=== PATIENT | female | born 1990 | race Two or more races ===

== ENCOUNTER 2024-11-20 19:02 | Observation (INO) | payer MEDICAID, SELFPAY ==
[2024-11-20] VITALS (60 sets, daily range): BP systolic 121–175; BP diastolic 76–98; PULSE 85–105; RESP 15–98; TEMP 36.6; O2SAT 92–100; BMI 50.4
[2024-11-20 20:12] LABS: Collection Type, Urine Voided
[2024-11-20 20:15] LABS: Basophils % (Auto) 0 % (0-2.5); Eosinophils # (Auto) 0.1 Thou/mm3 (0.0-0.5); Eosinophils % (Auto) 0 % (0-10); Hemoglobin 10.3 g/dL (12.0-16.0); Immature Granulocytes % (Auto) 1 % (0-0); Immature Granulocytes Auto 0.17 Thou/mm3 (0.00-0.00); Lymphocytes # (Auto) 2.5 Thou/mm3 (1.0-4.8); Lymphocytes % (Auto) 19 % (10-50); Mean Corpuscular HGB Conc 34.3 g/dl (31.0-37.0); Mean Corpuscular Hemoglobin 26.9 pg (25.0-35.0); Mean Corpuscular Volume 78 fL (80-100); Monocytes # (Auto) 0.6 Thou/mm3 (0.0-0.8); Monocytes % (Auto) 4 % (0-12); Neutrophils # (Auto) 10.3 Thou/mm3 (1.8-7.7); Neutrophils % (Auto) 75 % (37-80); Nucleated Red Blood Cell % 0 /100 WBC (0); Platelet Count 289 Thou/mm3 (140-440); Red Blood Count 3.83 Miln/mm3 (4.00-5.20); White Blood Count 13.7 Thou/mm3 (3.6-11.0)
[2024-11-20 20:22] LABS: Bilirubin,Urine Negative (Negative); Blood,Urine Negative (Negative); Clarity,Urine Clear (Clear/Hazy); Color,Urine Colorless (Lt Yel-Yel); Glucose, Urine Negative (Negative); Ketones,Urine Negative (Negative); Leukocyte Esterase,Urine Negative (Negative); Nitrite,Urine Negative (Negative); Protein,Urine Negative (Neg - Trace); RBC,Urine < 1 /hpf (0-3); Specific Gravity,Urine 1.007 (1.001-1.035); Squamous Epithelial Cell,Urine 2 /hpf (0-5); Urobilinogen,Urine Negative mg/dL (0.0-1.0); WBC,Urine 1 /hpf (0-5)
[2024-11-20 20:35] LABS: Fibrinogen 494 mg/dL (175-375); INR 0.9 (0.9-1.3); Partial Thromboplastin Time 27.3 Seconds (22.0-36.0); Prothrombin Time 10.3 Seconds (9.0-12.2)
[2024-11-20 22:31] LABS: Alanine Aminotransferase 8 U/L (10-49); Albumin, Serum 3.8 gm/dL (3.5-5.0); Albumin/Globulin Ratio 1.4 (1.2-2.2); Alkaline Phosphatase 94 U/L (46-116); Anion Gap 11 (7-16); Aspartate Amino Transferase 14 U/L (0-34); BUN/Creatinine Ratio 13 Ratio (12-20); Bilirubin,Total 0.2 mg/dL (0.3-1.2); Blood Urea Nitrogen 8 mg/dL (9-23); Calcium 8.8 mg/dL (8.3-10.6); Carbon Dioxide 21.5 mMol/L (20.0-31.0); Chloride 104 mMol/L (98-107); Creatinine (Component) 0.6 mg/dL (0.6-1.3); Estimated Creatinine Clearance 163.9 mL/min (>60); Globulin 2.8 gm/dL (2.3-3.5); Glucose 91 mg/dL (74-106); Osmolality,Calculated 270 (275-295); Potassium 3.6 mMol/L (3.4-5.1); Sodium 136 mMol/L (136-145); Total Protein 6.6 gm/dL (5.7-8.2); Uric Acid 3.5 mg/dL (3.1-7.8); eGFR > 60 See Note
== END 2024-11-20 22:50 | disposition home or self-care (01) ==
PROVIDERS: Admitting Provider Student in an Organized Health Care Education/Training Program; Visit Provider Student in an Organized Health Care Education/Training Program
DX: O26.892 Other specified pregnancy related conditions, second trimester (principal); Z3A.25 25 weeks gestation of pregnancy; R03.0 Elevated blood-pressure reading, without diagnosis of hypertension
CPT/HCPCS: 36415; 59025; 59899; 80053; 81001; 84550; 85025; 85384; 85610; 85730; G0378

== ENCOUNTER 2024-11-27 15:06 | Observation (INO) | payer MEDICAID, SELFPAY ==
[2024-11-27] VITALS (70 sets, daily range): BP systolic 124–185; BP diastolic 63–107; PULSE 79–109; RESP 20–99; TEMP 35.8; O2SAT 98–100; BMI 50.2
[2024-11-27 16:37] LABS: Basophils % (Auto) 0 % (0-2.5); Eosinophils % (Auto) 0 % (0-10); Hematocrit 30.3 % (36.0-46.0); Hemoglobin 10.3 g/dL (12.0-16.0); Immature Granulocytes % (Auto) 1 % (0-0); Immature Granulocytes Auto 0.15 Thou/mm3 (0.00-0.00); Lymphocytes # (Auto) 2.3 Thou/mm3 (1.0-4.8); Lymphocytes % (Auto) 17 % (10-50); Mean Corpuscular Volume 80 fL (80-100); Monocytes # (Auto) 0.6 Thou/mm3 (0.0-0.8); Monocytes % (Auto) 4 % (0-12); Neutrophils # (Auto) 10.6 Thou/mm3 (1.8-7.7); Neutrophils % (Auto) 77 % (37-80); Nucleated Red Blood Cell % 0 /100 WBC (0); Platelet Count 261 Thou/mm3 (140-440); RDW Standard Deviation 42.5 fL (36.4-46.3); Red Blood Count 3.81 Miln/mm3 (4.00-5.20); White Blood Count 13.7 Thou/mm3 (3.6-11.0)
[2024-11-27 16:47] LABS: Creatinine,Random Urine 148 mg/dL (30-125); Protein Total, Random Urine 25 mg/dL (1-14)
[2024-11-27 17:05] LABS: Collection Type, Urine Clean Catch
[2024-11-27 17:09] LABS: Alanine Aminotransferase < 7 U/L (10-49); Albumin, Serum 3.7 gm/dL (3.5-5.0); Albumin/Globulin Ratio 1.3 (1.2-2.2); Alkaline Phosphatase 97 U/L (46-116); Anion Gap 8 (7-16); Aspartate Amino Transferase 12 U/L (0-34); BUN/Creatinine Ratio 13 Ratio (12-20); Bilirubin,Total 0.3 mg/dL (0.3-1.2); Blood Urea Nitrogen 8 mg/dL (9-23); Calcium 8.6 mg/dL (8.3-10.6); Calcium (Corrected) 8.8 mg/dL (8.5-10.1); Chloride 107 mMol/L (98-107); Creatinine (Component) 0.6 mg/dL (0.6-1.3); Estimated Creatinine Clearance 163.5 mL/min (>60); Globulin 2.9 gm/dL (2.3-3.5); Glucose 85 mg/dL (74-106); LDH (Lactate Dehydrogenase) 140 U/L (120-246); Osmolality,Calculated 272 (275-295); Potassium 3.9 mMol/L (3.4-5.1); Sodium 138 mMol/L (136-145); Total Protein 6.6 gm/dL (5.7-8.2); Uric Acid 3.7 mg/dL (3.1-7.8); eGFR > 60 See Note
[2024-11-27 17:14] LABS: Bilirubin,Urine Negative (Negative); Blood,Urine Negative (Negative); Clarity,Urine Clear (Clear/Hazy); Color,Urine Yellow (Lt Yel-Yel); Culture Indicated,Urine Not Indicated; Glucose, Urine Negative (Negative); Ketones,Urine Negative (Negative); Leukocyte Esterase,Urine Positive (Negative); Nitrite,Urine Negative (Negative); PH,Urine 5.5 (5.0-7.0); Protein,Urine Trace (Neg - Trace); RBC,Urine 3 /hpf (0-3); Specific Gravity,Urine 1.029 (1.001-1.035); Squamous Epithelial Cell,Urine 7 /hpf (0-5); Urobilinogen,Urine Negative mg/dL (0.0-1.0); WBC,Urine 6 /hpf (0-5)
[2024-11-27] MEDS: LABETALOL 100 MG TABLET 200 MG PO (17:15)
[2024-11-27] MEDS: ACETAMINOPHEN 500 MG TABLET 1000 MG PO (17:16)
[2024-11-27 17:32] LABS: Fibrinogen 494 mg/dL (175-375); Partial Thromboplastin Time 30.2 Seconds (22.0-36.0); Prothrombin Time 10.6 Seconds (9.0-12.2)
[2024-11-27] MEDS: NIFEdipine XL 30 MG TABCR PO (18:26)
== END 2024-11-27 20:06 | disposition home or self-care (01) ==
PROVIDERS: Admitting Provider Specialist; Visit Provider Specialist
DX: Z34.02 Encounter for supervision of normal first pregnancy, second trimester (principal); Z3A.26 26 weeks gestation of pregnancy
CPT/HCPCS: 36415; 59025; 59899; 80053; 81001; 82570; 83615; 84156; 84550; 85025; 85384; 85610; 85730; A9270

== ENCOUNTER 2024-12-17 17:10 | Outpatient (CLI) | payer MEDICAID, SELFPAY ==
[2024-12-17] VITALS (9 sets, daily range): BP systolic 0–137; BP diastolic 0–91; PULSE 82–105; RESP 18–99; TEMP 36.8; BMI 50.2
[2024-12-17 17:56] LABS: Collection Type, Urine Clean Catch
[2024-12-17 18:16] LABS: Basophils % (Auto) 0 % (0-2.5); Eosinophils # (Auto) 0.1 Thou/mm3 (0.0-0.5); Eosinophils % (Auto) 1 % (0-10); Hematocrit 31.4 % (36.0-46.0); Hemoglobin 10.8 g/dL (12.0-16.0); Immature Granulocytes % (Auto) 1 % (0-0); Immature Granulocytes Auto 0.14 Thou/mm3 (0.00-0.00); Lymphocytes # (Auto) 1.8 Thou/mm3 (1.0-4.8); Lymphocytes % (Auto) 14 % (10-50); Mean Corpuscular HGB Conc 34.4 g/dl (31.0-37.0); Mean Corpuscular Hemoglobin 26.9 pg (25.0-35.0); Mean Corpuscular Volume 78 fL (80-100); Monocytes # (Auto) 0.4 Thou/mm3 (0.0-0.8); Monocytes % (Auto) 3 % (0-12); Neutrophils # (Auto) 10.8 Thou/mm3 (1.8-7.7); Neutrophils % (Auto) 81 % (37-80); Nucleated Red Blood Cell % 0 /100 WBC (0); Platelet Count 285 Thou/mm3 (140-440); RDW Standard Deviation 41.7 fL (36.4-46.3); Red Blood Count 4.02 Miln/mm3 (4.00-5.20); White Blood Count 13.3 Thou/mm3 (3.6-11.0)
[2024-12-17 18:20] LABS: Albumin, Serum 3.9 gm/dL (3.5-5.0); Albumin/Globulin Ratio 1.2 (1.2-2.2); Alkaline Phosphatase 115 U/L (46-116); Anion Gap 8 (7-16); Aspartate Amino Transferase 13 U/L (0-34); BUN/Creatinine Ratio 13 Ratio (12-20); Bilirubin,Total 0.3 mg/dL (0.3-1.2); Blood Urea Nitrogen 9 mg/dL (9-23); Calcium (Corrected) 9.1 mg/dL (8.5-10.1); Carbon Dioxide 20.8 mMol/L (20.0-31.0); Chloride 108 mMol/L (98-107); Creatinine (Component) 0.7 mg/dL (0.6-1.3); Estimated Creatinine Clearance 140.1 mL/min (>60); Globulin 3.2 gm/dL (2.3-3.5); Glucose 132 mg/dL (74-106); LDH (Lactate Dehydrogenase) 136 U/L (120-246); Osmolality,Calculated 274 (275-295); Sodium 137 mMol/L (136-145); Total Protein 7.1 gm/dL (5.7-8.2); Uric Acid 3.6 mg/dL (3.1-7.8); eGFR > 60 See Note
[2024-12-17 18:29] LABS: Alanine Aminotransferase 8 U/L (10-49)
[2024-12-17 19:14] LABS: Bacteria,Urine Rare; Bilirubin,Urine Negative (Negative); Blood,Urine Negative (Negative); Clarity,Urine Clear (Clear/Hazy); Color,Urine Yellow (Lt Yel-Yel); Glucose, Urine Negative (Negative); Ketones,Urine Negative (Negative); Leukocyte Esterase,Urine Positive (Negative); Nitrite,Urine Negative (Negative); Protein,Urine Trace (Neg - Trace); RBC,Urine 6 /hpf (0-3); Specific Gravity,Urine 1.029 (1.001-1.035); Squamous Epithelial Cell,Urine 12 /hpf (0-5); Urobilinogen,Urine Negative mg/dL (0.0-1.0); WBC,Urine 7 /hpf (0-5)
[2024-12-17 20:02] LABS: Partial Thromboplastin Time 29.3 Seconds (22.0-36.0); Prothrombin Time 10.5 Seconds (9.0-12.2)
[2024-12-17 20:06] LABS: Fibrinogen 617 mg/dL (175-375)
== END 2024-12-17 20:12 | disposition home or self-care (01) ==
LOC: S4S1 17:11 → S4SX 18:41
PROVIDERS: Referring Provider Obstetrics & Gynecology; Visit Provider Obstetrics & Gynecology
DX: Z34.03 Encounter for supervision of normal first pregnancy, third trimester (principal); Z36.89 Encounter for other specified antenatal screening; Z3A.30 30 weeks gestation of pregnancy
CPT/HCPCS: 36415; 80053; 81001; 83615; 84550; 85025; 85384; 85610; 85730

== ENCOUNTER 2024-12-24 11:04 | Outpatient (CLI) | payer MEDICAID, SELFPAY ==
[2024-12-24 11:12] VITALS: BP 143/85; PULSE 88
[2024-12-24 11:19] VITALS: RESP 18; TEMP 36.8; BMI 51.2
--- NOTE | 2024-12-24 11:29 | PC.NURSE ---
11:[address] STODDARD'S OFFICE WITH C/O DFM FOR [address] STODDARD ORDERED AN NST OVER THE TELEPHONE WHEN PT ARRIVES
[2024-12-24 11:32] VITALS: BP 143/80; PULSE 80
--- NOTE | 2024-12-24 11:35 | PC.NURSE ---
11:32 DR PEOPLES CALLED AND GIVEN SBAR WITH 1ST AND 2ND BP READING. DR WILL COME AND ASSESS P[T TO SEE IF HE WOULD LIKE TO ORDER ANYTHING ELSE BESIDES NST BY DR STODDARD
--- NOTE | 2024-12-24 11:37 | PC.NURSE ---
DR PEOPLES AT BEDSIDE ASSESSING PT
[2024-12-24 11:47] VITALS: BP 151/78; PULSE 83
--- NOTE | 2024-12-24 11:47 | PD.LDTRIAGE2 ---
Documentation for date of: 12/24/24 Hx History Provider: RICHI Attending Provider: RICHELLE : 1 Para: 0 Term: 0 : 0 Number of Living Children: 0 Abortions: Spontaneous & Elective: 0 # of Vaginal Deliveries:: 0 Hx Section: No Hx Vaginal Delivery Post : No Gestation Info Final VIVIAN: 02/24/25 Complaint Complaint Complaint: NST SENT FROM DR STODDARD'S OFFICE Medical History Medical History Medical History: G-1 AT 31 WEEKS WITH TRANSIENT DECREASE MOVEMETS WHILE AT HOME. SINCE ARRIVAL ON MONITOR PATIENT REPORTS MOVEMENTS X 2 OVER 15 MINUTES. CHRONIC HYPERTENSIVE X 3 YEARS CONTROLLED BY LABETALOL AND PROCARDIA BID FHR SHOWS REACTIVE ST . 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 Assessment Systems Assessment Systems With in Normal Limits: Yes Heart Monitoring Heart Rate Assessment FHR Baseline: 150 Variability: Moderate Movement Reported: Yes NST Reactive: Yes WNL for GA: Yes Amniotic Membranes Amniotic Membranes Amniotic Membrane Status: Intact Amniotic Membrane Fluid Amount: None Ultrasound results US Report Abruption: No Previa: No Social risk screen Social Risk Screening Observed or verbalized signs of abuse or neglect: No Radio Communications Superintendent Referral: No RN Notes Notes LD Triage Comment: PT ARRIVES TO OB TRIAGE WITH C/O DFM FOR 3 DAYS AND SENT OVER FROM DR STODDARD'S OFFICE FOR NST
[2024-12-24 12:03] VITALS: BP 143/83; PULSE 88; RESP 18; TEMP 36.8
== END 2024-12-24 12:00 | disposition home or self-care (01) ==
LOC: S4S1 11:06 → S4SX 11:08
PROVIDERS: Referring Provider Obstetrics & Gynecology; Visit Provider Obstetrics & Gynecology
DX: O36.8130 Decreased fetal movements, third trimester, not applicable or unspecified (principal); O10.913 Unspecified pre-existing hypertension complicating pregnancy, third trimester; Z3A.31 31 weeks gestation of pregnancy
CPT/HCPCS: 59025

== ENCOUNTER 2025-01-16 14:31 | Outpatient (RCR) | payer MEDICAID, SELFPAY ==
--- NOTE | 2024-12-30 10:48 | XR_ITS ---
Examination: Biophysical profile, ultrasound Date and time of exam: December 30, 2024 1119 hours INDICATIONS: -induced hypertension diagnosis Technique: Multiple transabdominal sonographic images of the pelvis abdomen obtained. Attention is directed to the breathing movement, gross body movement, amniotic fluid volume and tone. Findings: Amniotic fluid index 11.5 cm Total biophysical profile is 8 of 8. breathing movement is 2. Gross body movement is 2. tone is 2. Qualitative amniotic fluid volume is 2 Impression: Biophysical profile is 8 of 8.
[2024-12-30 11:46] VITALS: BP 123/70; PULSE 85; RESP 16; TEMP 36.7
--- NOTE | 2025-01-02 10:13 | XR_ITS ---
Examination: Biophysical profile, ultrasound Date and time of exam: January 02, 2025 1018 hours INDICATIONS: Diagnosis gestational hypertension Technique: Multiple transabdominal sonographic images of the pelvis abdomen obtained. Attention is directed to the breathing movement, gross body movement, amniotic fluid volume and tone. Findings: Amniotic fluid index 6.8 cm Total biophysical profile is 8 of 8. breathing movement is 2. Gross body movement is 2. tone is 2. Qualitative amniotic fluid volume is 2 Impression: Biophysical profile is 8 of 8.
[2025-01-02 10:40] VITALS: BP 121/66; PULSE 82; RESP 16; TEMP 36.8
--- NOTE | 2025-01-06 10:10 | XR_ITS ---
Examination: Biophysical profile, ultrasound Date and time of exam: January 06, 2025 1037 hours INDICATIONS: Pelvic cramping beginning 4 days ago, diagnosis gestational hypertension Technique: Multiple transabdominal sonographic images of the pelvis abdomen obtained. Attention is directed to the breathing movement, gross body movement, amniotic fluid volume and tone. Findings: Amniotic fluid index 7.1 cm Total biophysical profile is 8 of 8. breathing movement is 2. Gross body movement is 2. tone is 2. Qualitative amniotic fluid volume is 2 Impression: Biophysical profile is 8 of 8.
[2025-01-06 10:54] VITALS: BP 148/83; PULSE 91; RESP 16; TEMP 36.7
--- NOTE | 2025-01-09 10:18 | XR_ITS ---
Examination: Biophysical profile, ultrasound Date and time of exam: January 09, 2025 1224 hours INDICATIONS: -induced hypertension diagnosis Technique: Multiple transabdominal sonographic images of the pelvis abdomen obtained. Attention is directed to the breathing movement, gross body movement, amniotic fluid volume and tone. Findings: Amniotic fluid index 7.0 cm Total biophysical profile is 8 of 8. breathing movement is 2. Gross body movement is 2. tone is 2. Qualitative amniotic fluid volume is 2 Impression: Biophysical profile is 8 of 8.
[2025-01-09 10:50] VITALS: BP 132/70; PULSE 100; RESP 16; TEMP 36.9
--- NOTE | 2025-01-13 10:07 | XR_ITS ---
Examination: Biophysical profile, ultrasound Date and time of exam: January 13, 2025 1011 hours INDICATIONS: -induced hypertension diagnosis Technique: Multiple transabdominal sonographic images of the pelvis abdomen obtained. Attention is directed to the breathing movement, gross body movement, amniotic fluid volume and tone. Findings: Amniotic fluid index 8.0 cm Total biophysical profile is 8 of 8. breathing movement is 2. Gross body movement is 2. tone is 2. Qualitative amniotic fluid volume is 2 Impression: Biophysical profile is 8 of 8.
[2025-01-13 11:24] VITALS: BP 117/68; PULSE 83; RESP 16; TEMP 36.7
--- NOTE | 2025-01-16 14:40 | XR_ITS ---
Examination: Biophysical profile, ultrasound Date and time of exam: January 16, 2025 1450 hours INDICATIONS: Diagnosis gestational hypertension Technique: Multiple transabdominal sonographic images of the pelvis abdomen obtained. Attention is directed to the breathing movement, gross body movement, amniotic fluid volume and tone. Findings: Amniotic fluid index 8.6 cm Total biophysical profile is 8 of 8. breathing movement is 2. Gross body movement is 2. tone is 2. Qualitative amniotic fluid volume is 2 Impression: Biophysical profile is 8 of 8.
[2025-01-16 15:19] VITALS: TEMP 36.8
--- NOTE | 2025-01-16 16:25 | PD.LDTRIAGE2 ---
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
--- NOTE | 2025-01-16 16:28 | PD.LDTRIAGE2 ---
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
[2025-01-16 16:44] LABS: Creatinine,Urine 182 mg/dL (30-125); Protein Total, Random Urine 23 mg/dL (1-14)
== END 2025-01-16 23:59 | disposition home or self-care (01) ==
LOC: S4S1 14:31
PROVIDERS: Obstetrics & Gynecology; Referring Provider Nurse Practitioner Women's Health; Visit Provider Nurse Practitioner Women's Health
DX: O13.3 Gestational [pregnancy-induced] hypertension without significant proteinuria, third trimester (principal); O99.213 Obesity complicating pregnancy, third trimester; E66.9 Obesity, unspecified; Z3A.34 34 weeks gestation of pregnancy
CPT/HCPCS: 59025; 76819; 82570; 82575; 84156

== ENCOUNTER 2025-01-20 14:35 | Inpatient (IN) | payer MEDICAID, SELFPAY ==
[2025-01-20] VITALS (203 sets, daily range): BP systolic 130–197; BP diastolic 67–101; PULSE 75–120; RESP 18–98; TEMP 36.8–36.9; O2SAT 92–99; BMI 52.3
--- NOTE | 2025-01-20 12:46 | XR_ITS ---
Examination: Complete OB ultrasound greater than 14 weeks Date and time of exam: January 21, 2020 01/24/2007 hours INDICATIONS: Gestational hypertension Findings: Viable intrauterine single fetus with single amniotic sac presentation cephalic Cardiac motion 141 BPM Placenta maternal right Grade 2 Umbilical cord insertion 3 vessel seen Amniotic fluid index 7.3 cm spine maternal left Cervix 3.0 cm Ovaries obscured by bowel gas. Composite estimated gestational age based on BPD, head circumference, abdominal circumference, femur length is 34 weeks 3 days Estimated weight 2341.9 g. Survey of intracranial anatomy, spinal anatomy, abdominal anatomy, four-chamber heart performed with no abnormalities identified. Impression: Viable intrauterine gestation cephalic presentation.
[2025-01-20 13:21] LABS: Collection Type, Urine Clean Catch
[2025-01-20 13:27] LABS: Basophils % (Auto) 0 % (0-2.5); Eosinophils # (Auto) 0.1 Thou/mm3 (0.0-0.5); Eosinophils % (Auto) 0 % (0-10); Hematocrit 30.5 % (36.0-46.0); Hemoglobin 10.3 g/dL (12.0-16.0); Immature Granulocytes % (Auto) 1 % (0-0); Lymphocytes # (Auto) 1.8 Thou/mm3 (1.0-4.8); Lymphocytes % (Auto) 14 % (10-50); Mean Corpuscular HGB Conc 33.8 g/dl (31.0-37.0); Mean Corpuscular Hemoglobin 27.3 pg (25.0-35.0); Mean Corpuscular Volume 81 fL (80-100); Monocytes # (Auto) 0.4 Thou/mm3 (0.0-0.8); Monocytes % (Auto) 3 % (0-12); Neutrophils # (Auto) 10.8 Thou/mm3 (1.8-7.7); Neutrophils % (Auto) 82 % (37-80); Nucleated Red Blood Cell % 0 /100 WBC (0); Platelet Count 285 Thou/mm3 (140-440); RDW Standard Deviation 43.8 fL (36.4-46.3); Red Blood Count 3.77 Miln/mm3 (4.00-5.20); White Blood Count 13.3 Thou/mm3 (3.6-11.0)
[2025-01-20 13:41] LABS: Bilirubin,Urine Negative (Negative); Blood,Urine Negative (Negative); Color,Urine Yellow (Lt Yel-Yel); Glucose, Urine Negative (Negative); Ketones,Urine Trace (Negative); Leukocyte Esterase,Urine Positive (Negative); Nitrite,Urine Negative (Negative); PH,Urine 5.5 (5.0-7.0); Protein,Urine 1+ (Neg - Trace); RBC,Urine 1 /hpf (0-3); Specific Gravity,Urine 1.035 (1.001-1.035); Squamous Epithelial Cell,Urine 12 /hpf (0-5); Transitional Epi Cells,Urine 1 /hpf (0-5); Urobilinogen,Urine Negative mg/dL (0.0-1.0); WBC,Urine 6 /hpf (0-5)
[2025-01-20 13:42] LABS: Clarity,Urine Hazy (Clear/Hazy)
[2025-01-20 13:49] LABS: Fibrinogen 503 mg/dL (175-375); INR 0.9 (0.9-1.3); Partial Thromboplastin Time 28.4 Seconds (22.0-36.0); Prothrombin Time 10.4 Seconds (9.0-12.2)
[2025-01-20 13:58] LABS: Protein Total, Random Urine 44 mg/dL (1-14)
[2025-01-20 14:03] LABS: Creatinine,Random Urine 261 mg/dL (30-125)
[2025-01-20 14:04] LABS: Alanine Aminotransferase < 7 U/L (10-49); Albumin, Serum 3.8 gm/dL (3.5-5.0); Albumin/Globulin Ratio 1.5 (1.2-2.2); Alkaline Phosphatase 115 U/L (46-116); Anion Gap 10 (7-16); Aspartate Amino Transferase 12 U/L (0-34); BUN/Creatinine Ratio 11 Ratio (12-20); Bilirubin,Total 0.3 mg/dL (0.3-1.2); Blood Urea Nitrogen 10 mg/dL (9-23); Calcium 8.2 mg/dL (8.3-10.6); Calcium (Corrected) 8.4 mg/dL (8.5-10.1); Carbon Dioxide 20.1 mMol/L (20.0-31.0); Chloride 108 mMol/L (98-107); Creatinine (Component) 0.9 mg/dL (0.6-1.3); Estimated Creatinine Clearance 111.8 mL/min (>60); Globulin 2.5 gm/dL (2.3-3.5); Glucose 122 mg/dL (74-106); LDH (Lactate Dehydrogenase) 138 U/L (120-246); Osmolality,Calculated 275 (275-295); Potassium 4.4 mMol/L (3.4-5.1); Sodium 138 mMol/L (136-145); Total Protein 6.3 gm/dL (5.7-8.2); Uric Acid 5.1 mg/dL (3.1-7.8); eGFR > 60 See Note
[2025-01-20] MEDS: NIFEdipine 10 MG CAPSULE PO (14:42)
[2025-01-20] MEDS: BETAMET ACET/BETAMET NA PH (Celestone) 6 MG/ML VIAL 12 MG IM (15:06)
--- NOTE | 2025-01-20 15:06 | ESHP_ITS ---
Documentation for date of: 01/20/25 OB Labor/Induct. HPI History of Present Illness Chief complaint: Preeclampsia with severe features : 1 Para: 0 Term pregnancies: 0 pregnancies: 0 Living children: 0 History of Abortions: Spontaneous and Elective: 0 History of Vaginal deliveries: 0 History of sections: No History of : No Date of last menstrual period: 05/14/24 VIVIAN: 02/24/25 Gestational Age (weeks): 35 Gestational Age (days): 0 Gestational age based on last menstrual period: 35 Indication for induction: medical complication History of present illness: Patient is a 34-year-old 1 para 0 at 35 weeks and 0 days with estimated due date of 02/28/2025 who presented to labor and delivery triage with complaints of severely elevated blood pressures at home as well as headache with floaters in her visual field. She has a history of chronic hypertension and was on labetalol 200 twice daily as well as Procardia 60 XL at home On presentation she had her initial blood pressure was 190/90 and there were multiple severe range blood pressures subsequently. Patient continues to have headache and visual symptoms. She denies any contractions or leakage of fluid or vaginal bleeding and reports adequate movements. Patient receives care at [facility] and limited records are available in the chart History of Present Adequate Care: Yes Review of Systems Review of Systems Systems Reviewed: All systems reviewed, normal except as documented Past Medical History Surgical History SURGICAL: Negative Section Meds Home Medications and Allergies Home Medications ?Medication ?Instructions ?Recorded ?Confirmed ?Type aspirin 81 mg tablet,delayed 81 mg PO QDAY 11/20/24 History release (Adult Aspirin Regimen) nifedipine 60 mg tablet,extended 60 mg PO QDAY 5 01/20/25 History release vit no.95-ferrous 1 tab PO QDAY 11/20/2412/27 History fumarate 28 mg-folic acid 800 mcg tablet () Allergies Allergy/AdvReac Type Severity Reaction Status Date / Time No Known Allergies Allergy Verified 11/27/24 15:42 OB Exam Physical Exam Vital signs: Temp Pulse Resp BP Pulse Ox 98.3 F 75 20 148/89 H 97 01/20/25 12:36 01/20/25 14:42 01/20/25 12:36 01/20/25 14:42 01/20/25 15:06 Constitutional Constitutional: no acute distress Routine HEENT Exam Head: Present normocephalic and atraumatic Eye: Present EOMI and PERRL ENT: Present mucous membranes moist Routine Neck Exam Neck: Present supple and trachea midline Routine Cardiovascular Exam Cardiovascular: Present RRR Routine Abdominal Exam Abdominal: Present soft and normoactive bowel sounds Detailed Labor and Delivery Exam Dilation (cm): 0 Effacement (%): 0 Cervix position: mid station: -3 Consistency: firm Presentation: Vertex Membranes: intact Baseline heart rate: 130 monitor accelerations: 15x15 monitor decelerations: None intermediate project manager variability: Average (6-10) Routine Extremities Exam Extremities: Present full ROM Routine Skin Exam Skin: Present intact, dry and warm Routine Neurological Exam Neurological: Present alert, oriented X3 and CN II-XII intact Routine Psychiatric Exam Psychiatric: Present normal affect and normal thought process OB Results Labs 01/20/25 13:08 01/20/25 13:08 Labs: Short CBC 01/20/25 Range/Units 13:08 WBC 13.3 H (3.6-11.0) Thou/mm3 Hgb 10.3 L (12.0-16.0) g/dL Hct 30.5 L (36.0-46.0) % Plt Count 285 (140-440) Thou/mm3 BMP 01/20/25 13:08 Sodium 138 Potassium 4.4 Chloride 108 H Carbon Dioxide 20.1 BUN 10 Creatinine 0.9 Glucose 122 H Calcium 8.2 L Liver Function 01/20/25 Range/Units 13:08 Total Bilirubin 0.3 (0.3-1.2) mg/dL AST 12 (0-34) U/L ALT < 7 L (10-49) U/L Alkaline Phosphatase 115 (46-116) U/L Albumin 3.8 (3.5-5.0) gm/dL Urine 01/20/25 Range/Units 13:13 Urine Color Yellow (Lt Yel-Yel) Urine Clarity Hazy (Clear/Hazy) Urine pH 5.5 (5.0-7.0) Ur Specific Mchenry 1.035 (1.001-1.035) Urine Protein 1+ A (Neg - Trace) Urine Glucose (UA) Negative (Negative) Impressions Impression: 37-year-old at 35w0d gestation admitted for induction of labor due to severe preeclampsia. Diagnosis based on elevated blood pressure readings >=60/110 mmHg, presence of proteinuria, and/or associated symptoms (e.g., headache, visual disturbances, epigastric pain). No evidence of eclampsia or HELLP at this time. Delivery is indicated given gestational age >=4 weeks and severity of disease. OB Assessment & Plan Assessment and Plan (1) Chronic hypertension during : Status: Acute (2) Hypertension, uncontrolled: Status: Acute (3) Severe pre-eclampsia: Status: Acute Assessment and plan: * Admit to Labor & Delivery for induction of labor due to severe preeclampsia * Continuous monitoring and maternal vital signs * Initiate cervical ripening and/or oxytocin per institutional protocol based on Clifford score * Place Godinez catheter if indicated for strict intake/output * Magnesium sulfate for seizure prophylaxis: * 6g IV loading dose over 20 minutes * Then 2g/hr IV continuous infusion * Monitor reflexes, urine output, respiratory status * Labetalol 300 mg PO TID for blood pressure control * Nifedipine ER 60 mg PO daily * Acetaminophen PRN for headache Labs CBC with platelets, CMP (monitor creatinine, AST/ALT), LDH, UA with protein/creatinine ratio, Type and screen, Magnesium level q6h once on infusion Monitoring: * BP checks q15 minutes x1 hour, then q30?60 min until stable * DTRs and respiratory status q2 hours * Hourly urine output * Monitor for signs of magnesium toxicity or progression to HELLP/eclampsia Monitoring: * Continuous external monitoring (Category I expected) * BPP if NST non-reassuring or induction prolonged Delivery Plan: * Proceed with induction, anticipate vaginal delivery? * Epidural anesthesia encouraged for BP control and in case urgent needed * only for standard obstetric indications * Continue magnesium sulfate for 24 hours * Monitor BP closely * Consider starting antihypertensive therapy based on trends * Inspector And Mender on preeclampsia recurrence risk and follow-up Reviewed all precautions and delivery plan with the patient and she verbalized understanding (3) Severe pre-eclampsia Qualifiers: Trimester: third trimester Qualified Code(s): O14.13 - Severe pre-eclampsia, third trimester
[2025-01-20] MEDS: Magnesium Sulfate 2 GM Ivpb 2 GM/50 ML BAG IV (15:11)
[2025-01-20] MEDS: Magnesium Sulfate 4 GM Ivpb 4 GM/50 ML BAG IV (15:11)
[2025-01-20] MEDS: RINGERS LACTATED 1000 ML 1,000 ML 75 ML IV (15:11)
[2025-01-20 16:01] LABS: Amphetamine/Metham Scrn,Ur OB Negative (Negative); Benzoylecgonine Screen, Ur OB Negative (Negative); Opiate Screen,Urine OB Negative (Negative); THC Screen,Urine OB Negative (Negative)
[2025-01-20] MEDS: hydrALAZINE INJ 20 MG/ML VIAL 10 MG IVP (16:25)
[2025-01-20] MEDS: MAGNESIUM SULF 20 GM IVPB 20 GM/500 ML BAG IV (16:29)
[2025-01-20] MEDS: DINOPROSTONE 10 MG VAG.SUPP VAGINAL (16:45)
[2025-01-20] MEDS: LABETALOL 100 MG TABLET 300 MG PO (18:29)
[2025-01-20 18:35] LABS: Basophils % (Auto) 0 % (0-2.5); Eosinophils % (Auto) 0 % (0-10); Hematocrit 32.5 % (36.0-46.0); Hemoglobin 10.9 g/dL (12.0-16.0); Immature Granulocytes % (Auto) 1 % (0-0); Immature Granulocytes Auto 0.17 Thou/mm3 (0.00-0.00); Lymphocytes # (Auto) 1.3 Thou/mm3 (1.0-4.8); Lymphocytes % (Auto) 8 % (10-50); Mean Corpuscular HGB Conc 33.5 g/dl (31.0-37.0); Mean Corpuscular Hemoglobin 26.7 pg (25.0-35.0); Mean Corpuscular Volume 80 fL (80-100); Monocytes # (Auto) 0.2 Thou/mm3 (0.0-0.8); Monocytes % (Auto) 1 % (0-12); Neutrophils # (Auto) 15.7 Thou/mm3 (1.8-7.7); Neutrophils % (Auto) 90 % (37-80); Nucleated Red Blood Cell % 0 /100 WBC (0); Platelet Count 306 Thou/mm3 (140-440); Red Blood Count 4.08 Miln/mm3 (4.00-5.20); White Blood Count 17.4 Thou/mm3 (3.6-11.0)
[2025-01-20 19:09] LABS: Albumin/Globulin Ratio 1.4 (1.2-2.2); Alkaline Phosphatase 127 U/L (46-116); Anion Gap 13 (7-16); Aspartate Amino Transferase 13 U/L (0-34); BUN/Creatinine Ratio 13 Ratio (12-20); Bilirubin,Total 0.3 mg/dL (0.3-1.2); Blood Urea Nitrogen 10 mg/dL (9-23); Carbon Dioxide 19.5 mMol/L (20.0-31.0); Chloride 105 mMol/L (98-107); Creatinine (Component) 0.8 mg/dL (0.6-1.3); Estimated Creatinine Clearance 125.8 mL/min (>60); Globulin 2.9 gm/dL (2.3-3.5); Glucose 115 mg/dL (74-106); LDH (Lactate Dehydrogenase) 148 U/L (120-246); Osmolality,Calculated 273 (275-295); Potassium 4.5 mMol/L (3.4-5.1); Sodium 137 mMol/L (136-145); Total Protein 6.9 gm/dL (5.7-8.2); Uric Acid 5.2 mg/dL (3.1-7.8); eGFR > 60 See Note
[2025-01-20 19:21] LABS: Alanine Aminotransferase < 7 U/L (10-49); Magnesium 4.5 mg/dL (1.6-2.6)
[2025-01-20] MEDS: NIFEdipine XL 30 MG TABCR PO (20:58)
[2025-01-21] VITALS (415 sets, daily range): BP systolic 80–234; BP diastolic 45–121; PULSE 74–102; RESP 16–18; TEMP 36.5–36.8; O2SAT 80–100
[2025-01-21 00:09] LABS: Syphilis Nonreactive (Nonreactive)
[2025-01-21] MEDS: MAGNESIUM SULF 20 GM IVPB 20 GM/500 ML BAG IV ×3 (00:13→22:47)
[2025-01-21] MEDS: ACETAMINOPHEN IVPB 1,000 MG/100 ML VIAL 250 MG IV (00:32)
[2025-01-21 00:40] LABS: Basophils % (Auto) 0 % (0-2.5); Eosinophils % (Auto) 0 % (0-10); Hematocrit 32.4 % (36.0-46.0); Hemoglobin 10.9 g/dL (12.0-16.0); Immature Granulocytes % (Auto) 1 % (0-0); Immature Granulocytes Auto 0.16 Thou/mm3 (0.00-0.00); Lymphocytes # (Auto) 1.3 Thou/mm3 (1.0-4.8); Lymphocytes % (Auto) 7 % (10-50); Mean Corpuscular HGB Conc 33.6 g/dl (31.0-37.0); Mean Corpuscular Hemoglobin 26.8 pg (25.0-35.0); Mean Corpuscular Volume 80 fL (80-100); Monocytes # (Auto) 0.1 Thou/mm3 (0.0-0.8); Monocytes % (Auto) 1 % (0-12); Neutrophils # (Auto) 17.1 Thou/mm3 (1.8-7.7); Neutrophils % (Auto) 91 % (37-80); Nucleated Red Blood Cell % 0 /100 WBC (0); Platelet Count 302 Thou/mm3 (140-440); RDW Standard Deviation 44.9 fL (36.4-46.3); Red Blood Count 4.06 Miln/mm3 (4.00-5.20); White Blood Count 18.7 Thou/mm3 (3.6-11.0)
[2025-01-21 01:14] LABS: Alanine Aminotransferase 8 U/L (10-49); Albumin, Serum 4.2 gm/dL (3.5-5.0); Albumin/Globulin Ratio 1.6 (1.2-2.2); Alkaline Phosphatase 123 U/L (46-116); Anion Gap 11 (7-16); Aspartate Amino Transferase 14 U/L (0-34); BUN/Creatinine Ratio 14 Ratio (12-20); Bilirubin,Total 0.3 mg/dL (0.3-1.2); Blood Urea Nitrogen 10 mg/dL (9-23); Calcium 7.6 mg/dL (8.3-10.6); Calcium (Corrected) 7.6 mg/dL (8.5-10.1); Carbon Dioxide 17.8 mMol/L (20.0-31.0); Chloride 105 mMol/L (98-107); Creatinine (Component) 0.7 mg/dL (0.6-1.3); Estimated Creatinine Clearance 143.8 mL/min (>60); Globulin 2.7 gm/dL (2.3-3.5); Glucose 153 mg/dL (74-106); LDH (Lactate Dehydrogenase) 137 U/L (120-246); Osmolality,Calculated 270 (275-295); Potassium 4.2 mMol/L (3.4-5.1); Sodium 134 mMol/L (136-145); Total Protein 6.9 gm/dL (5.7-8.2); Uric Acid 5.3 mg/dL (3.1-7.8); eGFR > 60 See Note
[2025-01-21 01:19] LABS: Magnesium 5.3 mg/dL (1.6-2.6)
[2025-01-21] MEDS: RINGERS LACTATED 1000 ML 1,000 ML 100 ML IV (02:02)
[2025-01-21] MEDS: LABETALOL 100 MG TABLET 300 MG PO ×3 (02:23→18:45)
[2025-01-21 07:34] LABS: Basophils % (Auto) 0 % (0-2.5); Eosinophils % (Auto) 0 % (0-10); Hematocrit 30.8 % (36.0-46.0); Hemoglobin 10.4 g/dL (12.0-16.0); Immature Granulocytes % (Auto) 1 % (0-0); Immature Granulocytes Auto 0.18 Thou/mm3 (0.00-0.00); Lymphocytes # (Auto) 1.6 Thou/mm3 (1.0-4.8); Lymphocytes % (Auto) 8 % (10-50); Mean Corpuscular HGB Conc 33.8 g/dl (31.0-37.0); Mean Corpuscular Volume 80 fL (80-100); Monocytes # (Auto) 0.4 Thou/mm3 (0.0-0.8); Monocytes % (Auto) 2 % (0-12); Neutrophils # (Auto) 18.6 Thou/mm3 (1.8-7.7); Neutrophils % (Auto) 90 % (37-80); Nucleated Red Blood Cell % 0 /100 WBC (0); Platelet Count 286 Thou/mm3 (140-440); RDW Standard Deviation 44.9 fL (36.4-46.3); Red Blood Count 3.85 Miln/mm3 (4.00-5.20); White Blood Count 20.7 Thou/mm3 (3.6-11.0)
[2025-01-21] MEDS: MISOPROSTOL 50 mCg TABLET PO ×2 (07:40→12:20)
[2025-01-21 08:15] LABS: Alanine Aminotransferase 8 U/L (10-49); Albumin/Globulin Ratio 1.4 (1.2-2.2); Alkaline Phosphatase 123 U/L (46-116); Anion Gap 13 (7-16); Aspartate Amino Transferase 15 U/L (0-34); BUN/Creatinine Ratio 14 Ratio (12-20); Bilirubin,Total 0.3 mg/dL (0.3-1.2); Blood Urea Nitrogen 10 mg/dL (9-23); Calcium 7.4 mg/dL (8.3-10.6); Calcium (Corrected) 7.4 mg/dL (8.5-10.1); Chloride 103 mMol/L (98-107); Creatinine (Component) 0.7 mg/dL (0.6-1.3); Estimated Creatinine Clearance 143.8 mL/min (>60); Globulin 2.8 gm/dL (2.3-3.5); Glucose 132 mg/dL (74-106); LDH (Lactate Dehydrogenase) 149 U/L (120-246); Osmolality,Calculated 269 (275-295); Potassium 4.4 mMol/L (3.4-5.1); Sodium 134 mMol/L (136-145); Total Protein 6.8 gm/dL (5.7-8.2); Uric Acid 5.9 mg/dL (3.1-7.8); eGFR > 60 See Note
--- NOTE | 2025-01-21 08:19 | ESPR_ITS ---
Documentation for date of: 01/21/25 OB Labor Progress Note Pain Control Pain control: tolerating well Comments: Patient is a 34-year-old G1, P0 being induced for chronic hypertension with severe preeclampsia based on blood pressure criteria. Status post Cervidil yesterday and 1 dose of Cytotec this morning. She feels mild contractions. She is 35 1/7 weeks according to her dates. She states she was being followed by the [facility] in [place]. An ultrasound last week revealed a 4 pound 2 ounce baby. Or inducing for severe PIH. Patient has been checking her blood pressures at home. She is currently on magnesium. Cervix today is 2 cm 70-2 very anterior position. Patient does desire epidural in labor. The plan will be to AROM the patient at lunchtime and start ampicillin now. She she has an unknown group B strep status. She gets her second dose of steroids earlier this afternoon. Pelvic Exam Dilation (cm): 1.5 Effacement (%): 70 station: -1 Amniotic membrane status: Intact Contractions Monitor mode: External Contraction frequency: 5 Contraction pattern: Hypertonus Contraction intensity: Mild Status status: Category l Assessment and Plan Assessment: induction ongoing Comments: Plan to AROM patient at lunchtime and start Pitocin augmentation at that time.
[2025-01-21] MEDS: NIFEdipine XL 30 MG TABCR PO (08:49)
[2025-01-21] MEDS: Ampicillin Inj 2,000 MG in SODIUM CHLORIDE 0.9% (POP) 100 ML 200 MG IV (08:50)
[2025-01-21 12:34] LABS: Basophils % (Auto) 0 % (0-2.5); Eosinophils % (Auto) 0 % (0-10); Hematocrit 30.8 % (36.0-46.0); Hemoglobin 10.4 g/dL (12.0-16.0); Immature Granulocytes % (Auto) 1 % (0-0); Immature Granulocytes Auto 0.23 Thou/mm3 (0.00-0.00); Lymphocytes # (Auto) 1.5 Thou/mm3 (1.0-4.8); Lymphocytes % (Auto) 7 % (10-50); Mean Corpuscular HGB Conc 33.8 g/dl (31.0-37.0); Mean Corpuscular Hemoglobin 27.4 pg (25.0-35.0); Mean Corpuscular Volume 81 fL (80-100); Monocytes # (Auto) 0.6 Thou/mm3 (0.0-0.8); Monocytes % (Auto) 3 % (0-12); Neutrophils # (Auto) 18.2 Thou/mm3 (1.8-7.7); Neutrophils % (Auto) 89 % (37-80); Nucleated Red Blood Cell % 0 /100 WBC (0); Platelet Count 290 Thou/mm3 (140-440); RDW Standard Deviation 45.1 fL (36.4-46.3); Red Blood Count 3.79 Miln/mm3 (4.00-5.20); White Blood Count 20.5 Thou/mm3 (3.6-11.0)
[2025-01-21] MEDS: fentaNYL CIT INJ 50 mCg/ML AMP 2ML 100 MCG IVP (12:56)
[2025-01-21] MEDS: Ampicillin Inj 1,000 MG in SODIUM CHLORIDE 0.9% (Popper) 50 ML 50 MG IV ×3 (13:01→20:44)
[2025-01-21 13:08] LABS: Alanine Aminotransferase 8 U/L (10-49); Albumin, Serum 3.8 gm/dL (3.5-5.0); Albumin/Globulin Ratio 1.4 (1.2-2.2); Alkaline Phosphatase 118 U/L (46-116); Anion Gap 13 (7-16); Aspartate Amino Transferase 16 U/L (0-34); BUN/Creatinine Ratio 15 Ratio (12-20); Bilirubin,Total 0.3 mg/dL (0.3-1.2); Blood Urea Nitrogen 9 mg/dL (9-23); Calcium (Corrected) 7.2 mg/dL (8.5-10.1); Carbon Dioxide 17.9 mMol/L (20.0-31.0); Chloride 104 mMol/L (98-107); Creatinine (Component) 0.6 mg/dL (0.6-1.3); Estimated Creatinine Clearance 167.7 mL/min (>60); Globulin 2.8 gm/dL (2.3-3.5); Glucose 132 mg/dL (74-106); LDH (Lactate Dehydrogenase) 188 U/L (120-246); Osmolality,Calculated 270 (275-295); Potassium 4.3 mMol/L (3.4-5.1); Sodium 135 mMol/L (136-145); Total Protein 6.6 gm/dL (5.7-8.2); eGFR > 60 See Note
[2025-01-21] MEDS: RINGERS LACTATED 1000 ML 1,000 ML 75 ML IV (14:19)
[2025-01-21] MEDS: BETAMET ACET/BETAMET NA PH (Celestone) 6 MG/ML VIAL 12 MG IM (15:12)
[2025-01-21 18:54] LABS: Basophils % (Auto) 0 % (0-2.5); Eosinophils % (Auto) 0 % (0-10); Hematocrit 29.2 % (36.0-46.0); Immature Granulocytes % (Auto) 1 % (0-0); Immature Granulocytes Auto 0.15 Thou/mm3 (0.00-0.00); Lymphocytes # (Auto) 1.2 Thou/mm3 (1.0-4.8); Lymphocytes % (Auto) 6 % (10-50); Mean Corpuscular HGB Conc 34.2 g/dl (31.0-37.0); Mean Corpuscular Volume 79 fL (80-100); Monocytes # (Auto) 0.4 Thou/mm3 (0.0-0.8); Monocytes % (Auto) 2 % (0-12); Neutrophils # (Auto) 19.1 Thou/mm3 (1.8-7.7); Neutrophils % (Auto) 92 % (37-80); Nucleated Red Blood Cell % 0 /100 WBC (0); Platelet Count 298 Thou/mm3 (140-440); RDW Standard Deviation 44.5 fL (36.4-46.3); White Blood Count 20.9 Thou/mm3 (3.6-11.0)
[2025-01-21 19:28] LABS: Alanine Aminotransferase 10 U/L (10-49); Albumin, Serum 3.9 gm/dL (3.5-5.0); Albumin/Globulin Ratio 1.6 (1.2-2.2); Alkaline Phosphatase 112 U/L (46-116); Anion Gap 12 (7-16); Aspartate Amino Transferase 16 U/L (0-34); BUN/Creatinine Ratio 16 Ratio (12-20); Bilirubin,Total 0.3 mg/dL (0.3-1.2); Blood Urea Nitrogen 11 mg/dL (9-23); Calcium 6.9 mg/dL (8.3-10.6); Carbon Dioxide 18.6 mMol/L (20.0-31.0); Chloride 104 mMol/L (98-107); Creatinine (Component) 0.7 mg/dL (0.6-1.3); Estimated Creatinine Clearance 143.8 mL/min (>60); Globulin 2.4 gm/dL (2.3-3.5); Glucose 161 mg/dL (74-106); LDH (Lactate Dehydrogenase) 156 U/L (120-246); Osmolality,Calculated 272 (275-295); Potassium 4.4 mMol/L (3.4-5.1); Sodium 135 mMol/L (136-145); Total Protein 6.3 gm/dL (5.7-8.2); Uric Acid 6.1 mg/dL (3.1-7.8); eGFR > 60 See Note
[2025-01-21 19:31] LABS: Magnesium 5.9 mg/dL (1.6-2.6)
[2025-01-21] MEDS: OXYTOCIN in NS 30 units 30 UNIT/500 ML BAG IV (20:25)
[2025-01-22] VITALS (43 sets, daily range): BP systolic 109–152; BP diastolic 58–104; PULSE 72–98; RESP 14–20; TEMP 36.6–36.8; O2SAT 87–99
--- NOTE | 2025-01-22 00:57 | PD.LDPN ---
Documentation for date of: 01/22/25 OB Labor Progress Note Pain Control Pain control: tolerating well and epidural Pelvic Exam Dilation (cm): 3 Effacement (%): 70 station: -2 Amniotic membrane status: Ruptured Comments: IUPC in place Contractions Monitor mode: Internal Contraction frequency: 4-5 min Contraction intensity: Moderate Status status: Category ll Assessment and Plan Pitocin rate (mU/min): 5 Assessment: induction ongoing Plan OB labor note: Comments: Baby has times of decreased variability with subtle decelerations. Occasional lates. Category 1, sometimes category 2 tracing. Remote from delivery. Not making adequate change. For primary low-transverse section. The risks of the procedure discussed the patient and father the baby including the risk of bleeding infection blood transfusion damage to bowel bladder blood vessels other organs prolonged hospital stay further surgery should above occur. Will proceed with section at this time.
[2025-01-22 01:08] LABS: Basophils % (Auto) 0 % (0-2.5); Eosinophils % (Auto) 0 % (0-10); Hematocrit 25.5 % (36.0-46.0); Immature Granulocytes % (Auto) 1 % (0-0); Immature Granulocytes Auto 0.13 Thou/mm3 (0.00-0.00); Lymphocytes % (Auto) 6 % (10-50); Mean Corpuscular HGB Conc 32.9 g/dl (31.0-37.0); Mean Corpuscular Volume 82 fL (80-100); Monocytes # (Auto) 0.3 Thou/mm3 (0.0-0.8); Monocytes % (Auto) 2 % (0-12); Neutrophils # (Auto) 14.5 Thou/mm3 (1.8-7.7); Neutrophils % (Auto) 91 % (37-80); Nucleated Red Blood Cell % 0 /100 WBC (0); RDW Standard Deviation 45.9 fL (36.4-46.3); Red Blood Count 3.11 Miln/mm3 (4.00-5.20); White Blood Count 15.9 Thou/mm3 (3.6-11.0)
[2025-01-22] MEDS: FAMOTIDINE INJ 10 MG/ML VIAL 2 ML 20 MG IV (01:11)
[2025-01-22] MEDS: ceFAZolin/D5W 2 GM IV 2 GM/100 ML BAG IV (01:12)
[2025-01-22] MEDS: CITRIC ACID/SODIUM CITR 15 ML UDC (BICITRA) 30 ML PO (01:12)
[2025-01-22 01:17] LABS: Hemoglobin 8.4 g/dL (12.0-16.0)
[2025-01-22 01:48] LABS: Alanine Aminotransferase 8 U/L (10-49); Albumin, Serum 2.9 gm/dL (3.5-5.0); Albumin/Globulin Ratio 1.5 (1.2-2.2); Alkaline Phosphatase 84 U/L (46-116); Anion Gap 15 (7-16); Aspartate Amino Transferase 13 U/L (0-34); BUN/Creatinine Ratio 14 Ratio (12-20); Bilirubin,Total 0.2 mg/dL (0.3-1.2); Blood Urea Nitrogen 7 mg/dL (9-23); Calcium (Corrected) 7.4 mg/dL (8.5-10.1); Carbon Dioxide 15.8 mMol/L (20.0-31.0); Chloride 103 mMol/L (98-107); Creatinine (Component) 0.5 mg/dL (0.6-1.3); Estimated Creatinine Clearance 201.3 mL/min (>60); Glucose 126 mg/dL (74-106); LDH (Lactate Dehydrogenase) 115 U/L (120-246); Osmolality,Calculated 268 (275-295); Potassium 4.3 mMol/L (3.4-5.1); Sodium 134 mMol/L (136-145); Total Protein 4.9 gm/dL (5.7-8.2); Uric Acid 4.4 mg/dL (3.1-7.8); eGFR > 60 See Note
[2025-01-22 02:15] LABS: Calcium 6.5 mg/dL (8.3-10.6)
[2025-01-22 02:16] LABS: Magnesium > 10.0 mg/dL (1.6-2.6)
--- NOTE | 2025-01-22 02:51 | PD.LDDELS ---
Data ([facility]) Data Hx Section: No Reason for Primary Section: Persistent category 2 tracing, remote from delivery : 1 Term: 0 : 0 Livin Abortions: Spontaneous & Theraputic: 0 Delivery Data ([facility]) Labor Data Initiation of labor: Induction Induction/Augmentation Agent: Cytotec-PO, Cervidil and Pitocin ROM date: 01/21/25 ROM time: 18:28 Amniotic membrane rupture type: Artificial Amniotic fluid description: Clear Delivery Data EDC: 02/24/25 EDC calculated by:: LMP/early US confirmation [place] delivery date: 01/22/25 [place] delivery time: 01:58 Gestational age (weeks): 35 Gestational age (days): 1 Placenta delivery date: 01/22/25 Placenta delivery time: 01:59 Delivered by: T[facility] Purdy ([facility]) Delivery nurse: abdoulaye brizuela nurse: don george Supervisor Nuclear Medicine at delivery: Yes Support person(s) at delivery: CRISTOPHER vick Other staff at delivery: see operative note Delivery Method Delivery method: Low Transverse Presentation: Vertex position: OA Anesthesia Type Anesthesia Type: Epidural Placenta Placenta delivery description: Manual Removal Cord blood sent to lab: Yes cord blood collection: Cord Blood Type, Arterial Cord Blood Gas and Venous Cord Blood Gas Episiotomy Episiotomy description: None EBL Estimated blood loss (ml): 500 Umbilical Cord cord description: 3 Vessels Additional Procedures See op report for further details Complications Complications: None [place] Data ([facility]) [place] Data order: 1 [place]'s gender: Male Identification band number: [id number] weight (gms): 2060 g Weight (pounds): 4 lbs and 8.7 ozs length: 43.82 cm 1 minute: 8 5 minutes: 9
--- NOTE | 2025-01-22 03:04 | PD.GYNPROC ---
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 Coon 01/20/2025 for an induction of labor. She was 35 weeks EGA and she was started on magnesium on admission. She was on labetalol 300 3 times daily and Procardia XL 60 mg p.o. daily. The patient was induced with Cervidil and Cytotec, AROMed and eventually Pitocin was started. She had labor epidural placed and she progressed to 3 cm when the baby started having some decelerations, both late and variable decelerations. The baby had was good variability followed by times of decreased variability. The patient was still 3 cm dilated. As she was remote from delivery with a category 2 tracing not responsive to position changes, IV boluses and placement of oxygen, she was consented for a primary low-transverse section Pre-Op diagnosis: 1. Intrauterine at 35 weeks 2. Morbid obesity with BMI of 52 3. Chronic hypertension with superimposed preeclampsia 4. Persistent category 2 tracing remote from delivery Post-Op diagnosis: Same Anesthesia type: Epidural Procedure description: After obtaining informed consent, the patient was brought back to the operating room and her epidural was bolused to achieve excellent anesthesia. She was then prepped and draped in the dorsal supine position with a leftward tilt in a normal sterile fashion. Her pannus was taped. A Godinez catheter had been inserted during the patient's labor. Patient was given 2 g of Ancef by anesthesia. A Pfannenstiel skin incision was made with a scalpel and carried down to the underlying fascia. The fascia was incised the midline the fascial incision extended laterally using Guzman scissors. The superior aspect the fascia was grasped Serina clamps underlying rectus muscles dissected off using blunt and sharp dissection. This was repeated in the inferior aspect the incision. The rectus muscles were the midline the peritoneum was picked up and entered sharply with Metzenbaums. This was extended superiorly and inferiorly with good visualization of the bladder. The bladder blade was inserted the uterus was incised in a low transverse fashion using a scalpel above the bladder reflection. The uterine incision was extended laterally using blunt dissection with the surgeon's fingers. The bag santana ruptured, and clear fluid was noted. The bladder blade was removed, and the was delivered atraumatically in a vertex presentation. The cord was clamped and cut. The infant was handed off to the waiting pediatric staff. Cord blood and cord gases were sent. Of note the alliance director Dr. Tellez was present at delivery. The placenta was then manually removed and the uterus was exteriorized and cleared of all clots and debris. The uterine incision was repaired with 0 Monocryl in a running locked fashion. Excellent hemostasis was noted. The uterus was returned to the patient's abdominal cavity and copious irrigation carried out with warm normal saline. The uterine incision was reexamined several times and noted be hemostatic. After ensuring the rectus muscles were hemostatic ,these were reapproximated in the midline using a running suture of 0 Monocryl. The fascia was closed with 0 Vicryl in a running fashion. The subcutaneous tissues were irrigated and found to be hemostatic. These were reapproximated using running suture of 3-0 plain. The skin was closed with a subcuticular suture of 4-0 Monocryl. The patient tolerated the procedure well, sponge, lap, needle, and instrument counts were correct x 2. The patient went to the recovery area awake and in stable condition. Of note the baby was doing well at delivery and went up to the NICU for observation for prematurity. Fluids: crystalloid Fluid amount (mL): 900 Urine output (mL): 300 Specimen: none Implants: None Estimated blood loss (ml): 500 Findings: Liveborn male in the OA presentation with no nuchal cord and meconium Apgars were 8 and 9 weight was 4 pounds 8 ounces the placenta was complete spontaneous grossly normal with the exception of a velamentous insertion with a thin cord. The cord was hanging off the edge of the placenta in a very vulnerable position. The placenta itself was not small or calcified. Normal tubes ovaries uterus. Complications: none Surgical staff Juhi Lopez CRNA Operation Date: 01/22/25 00:20 <No data on this case meets the specified criteria> Diagnosis Discharge Diagnosis (1) Severe pre-eclampsia: Status: Acute (2) Chronic hypertension during : Status: Acute (3) Hypertension, uncontrolled: Status: Acute (4) Morbid obesity with BMI of 50.0-59.9, adult: Status: Acute (5) delivery (maternal condition): Status: Acute Problem List Completed Was Problem List Reviewed/Reconciled?: Yes (1) Severe pre-eclampsia Qualifiers: Trimester: third trimester Qualified Code(s): O14.13 - Severe pre-eclampsia, third trimester
[2025-01-22 04:09] LABS: Alanine Aminotransferase 11 U/L (10-49); Albumin, Serum 3.5 gm/dL (3.5-5.0); Albumin/Globulin Ratio 1.5 (1.2-2.2); Alkaline Phosphatase 100 U/L (46-116); Anion Gap 9 (7-16); Aspartate Amino Transferase 18 U/L (0-34); BUN/Creatinine Ratio 14 Ratio (12-20); Bilirubin,Total 0.2 mg/dL (0.3-1.2); Blood Urea Nitrogen 10 mg/dL (9-23); Carbon Dioxide 21.1 mMol/L (20.0-31.0); Chloride 107 mMol/L (98-107); Creatinine (Component) 0.7 mg/dL (0.6-1.3); Estimated Creatinine Clearance 143.8 mL/min (>60); Globulin 2.3 gm/dL (2.3-3.5); Glucose 153 mg/dL (74-106); Magnesium 4.1 mg/dL (1.6-2.6); Osmolality,Calculated 275 (275-295); Potassium 4.4 mMol/L (3.4-5.1); Sodium 137 mMol/L (136-145); Total Protein 5.8 gm/dL (5.7-8.2); eGFR > 60 See Note
[2025-01-22 04:18] LABS: Calcium 6.6 mg/dL (8.3-10.6)
[2025-01-22] MEDS: OXYTOCIN in NS 20 units 20 UNIT/1,000 ML BAG 125 UNIT IV (04:30)
[2025-01-22 04:33] LABS: Platelet Count 107 Thou/mm3 (140-440)
[2025-01-22] MEDS: ACETAMINOPHEN 325 MG TABLET 650 MG PO (04:34)
[2025-01-22 05:15] LABS: Basophils % (Auto) 0 % (0-2.5); Eosinophils % (Auto) 0 % (0-10); Hemoglobin 9.6 g/dL (12.0-16.0); Immature Granulocytes % (Auto) 1 % (0-0); Immature Granulocytes Auto 0.21 Thou/mm3 (0.00-0.00); Lymphocytes # (Auto) 1.1 Thou/mm3 (1.0-4.8); Lymphocytes % (Auto) 5 % (10-50); Mean Corpuscular HGB Conc 34.3 g/dl (31.0-37.0); Mean Corpuscular Hemoglobin 27.2 pg (25.0-35.0); Mean Corpuscular Volume 79 fL (80-100); Monocytes # (Auto) 0.6 Thou/mm3 (0.0-0.8); Monocytes % (Auto) 3 % (0-12); Neutrophils # (Auto) 20.2 Thou/mm3 (1.8-7.7); Neutrophils % (Auto) 91 % (37-80); Nucleated Red Blood Cell % 0 /100 WBC (0); Platelet Count 273 Thou/mm3 (140-440); RDW Standard Deviation 44.5 fL (36.4-46.3); Red Blood Count 3.53 Miln/mm3 (4.00-5.20); White Blood Count 22.1 Thou/mm3 (3.6-11.0)
[2025-01-22 05:29] LABS: Anion Gap 10 (7-16); BUN/Creatinine Ratio 17 Ratio (12-20); Blood Urea Nitrogen 10 mg/dL (9-23); Calcium 7.4 mg/dL (8.3-10.6); Carbon Dioxide 23.4 mMol/L (20.0-31.0); Chloride 103 mMol/L (98-107); Creatinine (Component) 0.6 mg/dL (0.6-1.3); Estimated Creatinine Clearance 167.7 mL/min (>60); Glucose 142 mg/dL (74-106); Osmolality,Calculated 272 (275-295); Potassium 4.3 mMol/L (3.4-5.1); Sodium 136 mMol/L (136-145); eGFR > 60 See Note
[2025-01-22] MEDS: HYDROcodone/APAP 5/325 TABLET 2 TAB PO ×2 (06:13→14:50)
[2025-01-22 06:53] LABS: Alanine Aminotransferase 11 U/L (10-49); Albumin, Serum 3.5 gm/dL (3.5-5.0); Albumin/Globulin Ratio 1.5 (1.2-2.2); Alkaline Phosphatase 101 U/L (46-116); Anion Gap 10 (7-16); Aspartate Amino Transferase 19 U/L (0-34); BUN/Creatinine Ratio 18 Ratio (12-20); Bilirubin,Total 0.3 mg/dL (0.3-1.2); Blood Urea Nitrogen 11 mg/dL (9-23); Calcium (Corrected) 7.2 mg/dL (8.5-10.1); Chloride 106 mMol/L (98-107); Creatinine (Component) 0.6 mg/dL (0.6-1.3); Estimated Creatinine Clearance 167.7 mL/min (>60); Globulin 2.3 gm/dL (2.3-3.5); Glucose 146 mg/dL (74-106); LDH (Lactate Dehydrogenase) 210 U/L (120-246); Magnesium 4.2 mg/dL (1.6-2.6); Osmolality,Calculated 279 (275-295); Potassium 4.4 mMol/L (3.4-5.1); Sodium 139 mMol/L (136-145); Total Protein 5.8 gm/dL (5.7-8.2); Uric Acid 5.2 mg/dL (3.1-7.8); eGFR > 60 See Note
[2025-01-22 07:05] LABS: Calcium 6.8 mg/dL (8.3-10.6)
--- NOTE | 2025-01-22 08:39 | PC.NURSE ---
Verified with Dr. Purdy: Run Mgso4 @50ml/hr and pit @75ml/hr. stop LR @ 125ml/hr.
[2025-01-22] MEDS: LABETALOL 100 MG TABLET 200 MG PO ×2 (09:23→21:02)
[2025-01-22] MEDS: NIFEdipine XL 30 MG TABCR 60 MG PO (09:23)
[2025-01-22] MEDS: MAGNESIUM SULF 20 GM IVPB 20 GM/500 ML BAG IV (12:12)
[2025-01-22 15:18] LABS: Magnesium 4.8 mg/dL (1.6-2.6)
--- NOTE | 2025-01-22 18:58 | PD.LDPPPRG ---
Subjective Subjective Interval history: Patient is a 34-year-old -1-0-1 status post primary around 3 in the morning for severe preeclampsia. Patient was on magnesium. She had a mag level drawn and it was 10 overnight this was repeated and it was actually 4. Patient was always asymptomatic. I rounded on the patient approximately 830 the morning and she was doing well. She was trying to pump breastmilk. Baby is in the NICU doing well her blood pressures are stabilizing with no IV pushes. She is on 200 of labetalol twice a day and 60 of Procardia a day. The plan will be to continue magnesium until close to 24 hours , she has good urine output Exam Vital Signs Temp Pulse Resp BP Pulse Ox O2 Del Method 98.1 F 79 16 124/76 94 L Room Air 01/22/25 12:00 01/22/25 18:00 01/22/25 18:00 01/22/25 18:00 01/22/25 18:00 01/22/25 18:00 Narrative Exam Fundus firm dressing in place extremities show 3+ edema and she has SCDs in place Objective Labs 01/22/25 04:55 01/22/25 06:00 Labs: Laboratory Results - last 24 hr 01/21/25 01/22/25 01/22/25 18:23 00:45 03:14 WBC 20.9 H 15.9 H D RBC 3.70 L 3.11 L Hgb 10.0 L 8.4 L Hct 29.2 L 25.5 L MCV 79 L 82 MCH 27.0 27.0 MCHC 34.2 32.9 RDW Std Deviation 44.5 45.9 Plt Count 298 107 L D Neut % (Auto) 92 H 91 H Lymph % (Auto) 6 L 6 L [place] % (Auto) 2 2 Eos % (Auto) 0 0 Baso % (Auto) 0 0 Neut # (Auto) 19.1 H 14.5 H Lymph # (Auto) 1.2 1.0 [place] # (Auto) 0.4 0.3 Eos # (Auto) 0.0 0.0 Baso # (Auto) 0.0 0.0 Immature Gran # (Auto) 0.15 H 0.13 H Absolute Nucleated RBC 0.00 0.00 Immature Gran % 1 H 1 H Nucleated RBC % 0 0 Sodium 135 L 134 L 137 Potassium 4.4 4.3 4.4 Chloride 104 103 107 Carbon Dioxide 18.6 L 15.8 L 21.1 Anion Gap 12 15 9 BUN 11 7 L 10 Creatinine 0.7 0.5 L 0.7 Estim Creat Clear Calc 143.8 201.3 143.8 eGFR > 60 > 60 > 60 BUN/Creatinine Ratio 16 14 14 Glucose 161 H 126 H 153 H Calculated Osmolality 272 L 268 L 275 Uric Acid 6.1 4.4 Calcium 6.9 L 6.5 L* 6.6 L* Corrected Calcium 7.0 L 7.4 L 7.0 L Magnesium 5.9 H* > 10.0 H* 4.1 H Total Bilirubin 0.3 0.2 L 0.2 L AST 16 13 18 ALT 10 8 L 11 Alkaline Phosphatase 112 84 D 100 Lactate Dehydrogenase 156 115 L Total Protein 6.3 4.9 L 5.8 Albumin 3.9 2.9 L D 3.5 D Globulin 2.4 2.0 L 2.3 Albumin/Globulin Ratio 1.6 1.5 1.5 01/22/25 01/22/25 01/22/25 04:55 06:00 14:17 WBC 22.1 H D RBC 3.53 L Hgb 9.6 L Hct 28.0 L MCV 79 L MCH 27.2 MCHC 34.3 RDW Std Deviation 44.5 Plt Count 273 D Neut % (Auto) 91 H Lymph % (Auto) 5 L [place] % (Auto) 3 Eos % (Auto) 0 Baso % (Auto) 0 Neut # (Auto) 20.2 H Lymph # (Auto) 1.1 [place] # (Auto) 0.6 Eos # (Auto) 0.0 Baso # (Auto) 0.0 Immature Gran # (Auto) 0.21 H Absolute Nucleated RBC 0.00 Immature Gran % 1 H Nucleated RBC % 0 Sodium 136 139 Potassium 4.3 4.4 Chloride 103 106 Carbon Dioxide 23.4 23.0 Anion Gap 10 10 BUN 10 11 Creatinine 0.6 0.6 Estim Creat Clear Calc 167.7 167.7 eGFR > 60 > 60 BUN/Creatinine Ratio 17 18 Glucose 142 H 146 H Calculated Osmolality 272 L 279 Uric Acid 5.2 Calcium 7.4 L 6.8 L* Corrected Calcium 7.2 L Magnesium 4.2 H 4.8 H Total Bilirubin 0.3 AST 19 ALT 11 Alkaline Phosphatase 101 Lactate Dehydrogenase 210 Total Protein 5.8 Albumin 3.5 Globulin 2.3 Albumin/Globulin Ratio 1.5 Assessment & Plan Problem List (1) Severe pre-eclampsia: Problem details: Attempted IOL for PIH at 35 weeks. Status post primary . DC magnesium at 24 hours. Keep Godinez until magnesium DC'd. Daily preeclamptic labs Status: Acute (2) Chronic hypertension during : Problem details: Continue labetalol and nifedipine Status: Acute (3) Hypertension, uncontrolled: Status: Acute (4) Morbid obesity with BMI of 50.0-59.9, adult: Problem details: Lovenox 40 daily x 6 weeks Status: Acute (5) delivery (maternal condition): Status: Acute Time Spent With Patient Time: Total time spent is greater than 50% in coordination of care (as documented) at patient's floor/unit and/or counseling patient: Time with patient: less than 15 minutes
[2025-01-22 19:10] LABS: Magnesium 4.8 mg/dL (1.6-2.6)
[2025-01-22] MEDS: KETOROLAC INJ 30 MG/ML VIAL IVP (23:15)
[2025-01-23] VITALS (10 sets, daily range): BP systolic 111–136; BP diastolic 74–83; PULSE 83–92; RESP 16–19; TEMP 36.7–37.2; O2SAT 96–97
[2025-01-23] MEDS: KETOROLAC INJ 30 MG/ML VIAL IVP ×3 (06:00→17:58)
[2025-01-23 06:23] LABS: Basophils % (Auto) 0 % (0-2.5); Eosinophils % (Auto) 0 % (0-10); Hematocrit 25.3 % (36.0-46.0); Immature Granulocytes % (Auto) 1 % (0-0); Immature Granulocytes Auto 0.15 Thou/mm3 (0.00-0.00); Lymphocytes # (Auto) 2.1 Thou/mm3 (1.0-4.8); Lymphocytes % (Auto) 16 % (10-50); Mean Corpuscular HGB Conc 33.6 g/dl (31.0-37.0); Mean Corpuscular Hemoglobin 27.3 pg (25.0-35.0); Mean Corpuscular Volume 81 fL (80-100); Monocytes # (Auto) 0.7 Thou/mm3 (0.0-0.8); Monocytes % (Auto) 5 % (0-12); Neutrophils # (Auto) 10.5 Thou/mm3 (1.8-7.7); Neutrophils % (Auto) 78 % (37-80); Nucleated Red Blood Cell % 0 /100 WBC (0); Platelet Count 246 Thou/mm3 (140-440); RDW Standard Deviation 46.8 fL (36.4-46.3); Red Blood Count 3.11 Miln/mm3 (4.00-5.20); White Blood Count 13.5 Thou/mm3 (3.6-11.0)
[2025-01-23 06:29] LABS: Alanine Aminotransferase 17 U/L (10-49); Albumin, Serum 3.3 gm/dL (3.5-5.0); Albumin/Globulin Ratio 1.7 (1.2-2.2); Alkaline Phosphatase 84 U/L (46-116); Anion Gap 9 (7-16); Aspartate Amino Transferase 23 U/L (0-34); BUN/Creatinine Ratio 20 Ratio (12-20); Bilirubin,Total 0.2 mg/dL (0.3-1.2); Blood Urea Nitrogen 14 mg/dL (9-23); Calcium (Corrected) 7.4 mg/dL (8.5-10.1); Carbon Dioxide 25.8 mMol/L (20.0-31.0); Chloride 106 mMol/L (98-107); Creatinine (Component) 0.7 mg/dL (0.6-1.3); Estimated Creatinine Clearance 143.8 mL/min (>60); Glucose 96 mg/dL (74-106); Hemoglobin 8.5 g/dL (12.0-16.0); Osmolality,Calculated 281 (275-295); Potassium 4.7 mMol/L (3.4-5.1); Sodium 141 mMol/L (136-145); Total Protein 5.3 gm/dL (5.7-8.2); eGFR > 60 See Note
[2025-01-23 06:46] LABS: Calcium 6.8 mg/dL (8.3-10.6)
--- NOTE | 2025-01-23 08:12 | PD.LDPPPRG ---
Subjective Subjective Interval history: Delivery type: , patient is status post magnesia for preeclampsia with severe features. Patient doing well this morning. No acute complaints. Ambulating, tolerating p.o. and voiding without difficulty. HTN/Pre-Eclampsia screen: No chest pain, shortness of breath, headache, visual changes, epigastric or right upper quadrant pain. Breast-feeding, lochia diminishing. Bowel: Flatus+/ BM+ Exam Vital Signs Temp Pulse Resp BP Pulse Ox O2 Del Method 98.2 F 83 16 111/74 97 Room Air 01/23/25 04:00 01/23/25 04:00 01/23/25 04:00 01/23/25 04:00 01/23/25 04:00 01/23/25 04:00 Constitutional Constitutional: no acute distress Routine HEENT Exam Head: Present normocephalic and atraumatic Eye: Present EOMI and PERRL ENT: Present mucous membranes moist Routine Neck Exam Neck: Present supple and trachea midline Routine Respiratory Exam Respiratory: Present chest non-tender, lungs clear, normal breath sounds and no resp distress Routine Cardiovascular Exam Cardiovascular: Present RRR Routine Abdominal Exam Abdominal: Present soft and normoactive bowel sounds Routine Extremities Exam Extremities: Present full ROM Routine Skin Exam Skin: Present intact, dry and warm Routine Neurological Exam Neurological: Present alert, oriented X3 and CN II-XII intact Routine Psychiatric Exam Psychiatric: Present normal affect and normal thought process Objective Labs 01/23/25 05:35 01/23/25 05:35 Labs: Laboratory Results - last 24 hr 01/22/25 01/22/25 01/23/25 14:17 18:13 05:35 WBC 13.5 H D RBC 3.11 L Hgb 8.5 L Hct 25.3 L MCV 81 MCH 27.3 MCHC 33.6 RDW Std Deviation 46.8 H Plt Count 246 Neut % (Auto) 78 Lymph % (Auto) 16 [place] % (Auto) 5 Eos % (Auto) 0 Baso % (Auto) 0 Neut # (Auto) 10.5 H Lymph # (Auto) 2.1 [place] # (Auto) 0.7 Eos # (Auto) 0.0 Baso # (Auto) 0.0 Immature Gran # (Auto) 0.15 H Absolute Nucleated RBC 0.00 Immature Gran % 1 H Nucleated RBC % 0 Sodium 141 Potassium 4.7 Chloride 106 Carbon Dioxide 25.8 Anion Gap 9 BUN 14 Creatinine 0.7 Estim Creat Clear Calc 143.8 eGFR > 60 BUN/Creatinine Ratio 20 Glucose 96 D Calculated Osmolality 281 Calcium 6.8 L* Corrected Calcium 7.4 L Magnesium 4.8 H 4.8 H Total Bilirubin 0.2 L AST 23 ALT 17 Alkaline Phosphatase 84 Total Protein 5.3 L Albumin 3.3 L Globulin 2.0 L Albumin/Globulin Ratio 1.7 Assessment & Plan Problem List (1) Severe pre-eclampsia: Status: Acute (2) Chronic hypertension during : Problem details: Continue labetalol and nifedipine Status: Acute (3) Hypertension, uncontrolled: Status: Acute (4) Morbid obesity with BMI of 50.0-59.9, adult: Problem details: Lovenox 40 daily x 6 weeks Status: Acute (5) delivery (maternal condition): Status: Acute (6) delivery delivered: Status: Acute Assessment and plan: 1. Continue routine /post-op care 2. Labs reviewed, cbc appropriate 3. Remove dressing/Godinez 4. Encourage to ambulate, shower 5. Encourage PO intake, breast feeding 6. Continue to monitor for Mg toxicity Time Spent With Patient Time: Total time spent is greater than 50% in coordination of care (as documented) at patient's floor/unit and/or counseling patient:
[2025-01-23] MEDS: NIFEdipine XL 30 MG TABCR 60 MG PO (09:12)
[2025-01-23] MEDS: LABETALOL 100 MG TABLET 200 MG PO ×2 (09:13→21:28)
[2025-01-23] MEDS: ENOXAPARIN SOD INJ 40 MG/0.4 ML SYRINGE SC (09:13)
[2025-01-24] MEDS: KETOROLAC INJ 30 MG/ML VIAL IVP ×2 (00:12→06:04)
[2025-01-24 00:16] VITALS: BP 138/87; PULSE 85; RESP 18; TEMP 36.8; O2SAT 95
[2025-01-24 03:48] VITALS: BP 115/66; PULSE 81; RESP 18; TEMP 36.8; O2SAT 97
[2025-01-24 07:30] VITALS: BP 156/86; PULSE 75; RESP 18; TEMP 36.6; O2SAT 97
[2025-01-24 07:41] VITALS: BP 152/86; PULSE 75
[2025-01-24] MEDS: LABETALOL 100 MG TABLET 200 MG PO (07:41)
[2025-01-24] MEDS: NIFEdipine XL 30 MG TABCR 60 MG PO (07:41)
[2025-01-24] MEDS: ENOXAPARIN SOD INJ 40 MG/0.4 ML SYRINGE SC (07:42)
--- NOTE | 2025-01-24 08:24 | ESPR_ITS ---
RE: STEVE HERNADEZ : 1990 DATE OF SERVICE: 01/24/2025 S: Postop day #2, the patient denies any problem or complaints. She is voiding. She is ambulating. She is tolerated regular diet. She is passing flatus. She denies any excessive vaginal bleeding. She denies any dizziness or lightheadedness. She denies any chest pain, palpitations, shortness of breath, or lower extremity pain. She denies any headache, change in vision, or right upper quadrant pain. O: Vital Signs: Blood pressure 152/86, heart rate 75, respirations 18, and temperature 98.2. Lungs: Clear to auscultation bilaterally. Heart: Regular rate and rhythm. Abdomen: Incision clean and intact. Fundus is firm, nondistended. Extremities: Nontender. A: 1. Postop day #2, status post delivery. 2. Chronic hypertension with superimposed preeclampsia with severe features with stable blood pressures on labetalol and Procardia. P: Discharge home. Discharge instructions given. Follow up in the office in 1 week. DT: 07:59:14 TT: 08:23:00 Ref: [id number] - TID: [id number]
[2025-01-24] MEDS: MEASLES, MUMPS & RUBELLA VACC 0.5 ML VIAL SCi (10:10)
[2025-01-24 11:30] VITALS: BP 139/79; PULSE 78; RESP 18; TEMP 36.9; O2SAT 98
--- NOTE | 2025-01-24 13:22 | ESDS_ITS ---
DS: Providers Provider Date of admission: 01/20/25 14:35 Primary care physician: Physician No Primary/Family Admitting Provider: Clarisa Beltran MD Attending Provider on Admission: Cash Mcbride MD Consults: 01/22/25 02:54 Referral Routine Comment: 01/22/25 21:27 Referral Routine Comment: Attending Provider on DC: Cash Mcbride MD Discharging Provider: Cash Mcbride MD DS: Diagnosis Problem List Completed Was Problem List Reviewed/Reconciled?: Yes Summary/Hosp Course Brief History: Patient is a 34-year-old 1 para 0 at 35 weeks and 0 days with estimated due date of 02/28/2025 who presented to labor and delivery triage with complaints of severely elevated blood pressures at home as well as headache with floaters in her visual field. She has a history of chronic hypertension and was on labetalol 200 twice daily as well as Procardia 60 XL at home On presentation she had her initial blood pressure was 190/90 and there were multiple severe range blood pressures subsequently. Patient continues to have headache and visual symptoms. She denies any contractions or leakage of fluid or vaginal bleeding and reports adequate movements. Patient receives care at [facility] and limited records are available in the chart Peripartum Data Delivery Method: Low Transverse Episiotomy Description: None Procedures: Procedures Operation Date: 01/22/25 01:30 <No data on this case meets the specified criteria> Operation Date: 01/22/25 01:50 Actual Procedure Side Surgeon p in OR Tanya Purdy ([facility])MD Time Spent with Patient Time attestation: Total time spent providing and/or coordinating discharge services: Exam Vital Signs Temp Pulse Resp BP Pulse Ox O2 Del Method 98.4 F 78 18 139/79 H 98 Room Air 01/24/25 11:30 01/24/25 11:30 01/24/25 11:30 01/24/25 11:30 01/24/25 11:30 01/24/25 11:30 Discharge Plan Plan Patient Disposition: HOME (Self Care) Patient condition on transfer: Stable Prescriptions/Referrals Prescriptions/Med Rec: New labetalol 200 mg tablet 200 mg PO BID 30 Days Qty: 60 1RF nifedipine 60 mg tablet extended release 60 mg PO QDAY 30 Days Qty: 30 2RF hydrocodone-acetaminophen 5-325 mg tablet 1 tab PO Q6H MDD 4 PRN (Reason: pain) 7 Days Qty: 28 0RF ibuprofen 600 mg tablet 600 mg PO Q6H PRN (Reason: fever or pain) 10 Days Qty: 40 0RF docusate sodium [Stool Softener] 100 mg capsule 100 mg PO QDAY 30 Days Qty: 30 0RF Discontinued nifedipine 60 mg tablet extended release 60 mg PO QDAY PNV [id number] fumarate-FA [] 28 mg iron- 800 mcg tablet 1 tab PO QDAY aspirin [Adult Aspirin Regimen] 81 mg tablet,delayed release (DR/EC) 81 mg PO QDAY labetalol 200 mg tablet 200 mg PO BID Qty: 60 6RF Referrals: Clarisa Beltran MD [Physician] - No Primary/Family,Physician [Primary Care Provider] - Patient/Caregiver Discharge Instructions Meds to Beds: Yes Discharge Activity: activity as tolerated Other Discharge Activity Instructions:: Follow up office 1 week Education Materials: Understanding Preeclampsia, , C Section Dc, Gestational Hypertension Print Language: Mauritian Stand Alone Forms: Selena Award Info., Patient Portal Info Letter Vaccines Vaccines Given During Stay: Rhogam Discharge Order Discharge Orders: Discharge (Routine); Ordered 01/24/25 Ordered By: Cash Mcbride Planned Discharge Date 01/24/25
== END 2025-01-24 11:34 | disposition home or self-care (01) | DRG 540 ==
LOC: S4S1 01-21 05:51 → S4SX 01-21 05:51 → S4NX 01-22 01:25
PROVIDERS: Obstetrics & Gynecology; Admitting Provider Student in an Organized Health Care Education/Training Program; Referring Provider Obstetrics & Gynecology; Visit Provider Specialist
PROC: (CPT 59514; principal; 2025-01-22 00:20)
DX: O14.14 Severe pre-eclampsia complicating childbirth (principal); Z3A.35 35 weeks gestation of pregnancy; E66.01 Morbid (severe) obesity due to excess calories; O60.14X0 Preterm labor third trimester with preterm delivery third trimester, not applicable or unspecified; O76 Abnormality in fetal heart rate and rhythm complicating labor and delivery; O99.214 Obesity complicating childbirth; Z37.0 Single live birth; Z79.899 Other long term (current) drug therapy
CPT/HCPCS: 36415; 59025; 59409; 76805; 80048; 80053; 80307; 81001; 82570; 83615; 83735; 84156; 84550; 85025; 85384; 85610; 85730; 86780; 86850; 86900; 86901; 90707; 94762; A4217; J0131; J0290; J0360; J0689; J0702; J1100; J1650; J1885; J2371; J2405; J2590; J2795; J3010; J3475; J3490; J7050; J7120; A9270